=== PATIENT | male | born 1975 | race Caucasian/White ===

== ENCOUNTER 2024-09-20 09:12 | Outpatient (CLI) | payer OTHER, SELFPAY ==
--- NOTE | ~2024-09-20 | XR_ITS ---
Right Hand Technique: PA and lateral views were obtained. Clinical History: Pain Findings: No acute fracture or dislocation is seen. Osseous alignment is anatomic. Joint spaces are p reserved. Soft tissues are unremarkable. Impression: Unremarkable right hand. Reviewed, dictated and finalized at location M. [facility] Impression: Unremarkable right hand.
--- NOTE | 2024-09-20 11:15 | NEURO_ITS ---
Impression: # Complains of numbness of right hand with nocturnal paresthesia. Non-diabetic. # Right sensory more than motor Carpal Tunnel Syndrome. # No ulnar neuropathy. # Needle/EMG exam not requested. Nerve Conduction Studies Anti Sensory Summary Table Stim Site NR Peak (ms) P-T Amp (?V) Site1 Site2 Delta-P (ms) Dist (cm) Cristi (m/s) Right Median Anti Sensory (2-3nd Digit) Wrist 3.9 26.9 Wrist 2-3nd Digit 3.9 14.0 36 Wrist 4.6 11.8 Wrist 2-3nd Digit 3.9 14.0 36 Right Radial Anti Sensory (Base 1st Digit) Wrist 2.1 17.7 Wrist Base 1st Digit 2.1 0.0 Right Ulnar Anti Sensory (5th Digit) Wrist 2.4 52.6 Wrist 5th Digit 2.4 14.0 58 Motor Summary Table Stim Site NR Onset (ms) O-P Amp (mV) Site1 Site2 Delta-0 (ms) Dist (cm) Cristi (m/s) Right Median Motor (Abd Poll Brev) Wrist 3.8 3.4 Elbow Wrist 5.5 29.0 53 Elbow 9.3 4.4 Right Ulnar Motor (Abd Dig Minimi) Wrist 2.3 9.1 A Elbow Wrist 5.4 30.0 56 A Elbow 7.7 7.6 F Wave Studies NR F-Lat (ms) L-R F-Lat (ms) Right Median (Mrkrs) (Abd Poll Brev) 27.10 Right Ulnar (Mrkrs) (Abd Dig Min) 27.90 MTDD
== END 2024-09-20 09:13 | disposition home or self-care (01) ==
LOC: ANHNEURO 09:28
PROVIDERS: PCP Internal Medicine; Visit Provider Internal Medicine
DX: M79.641 Pain in right hand (principal); G56.01 Carpal tunnel syndrome, right upper limb
CPT/HCPCS: 73120; 95909